=== PATIENT | male | born 1950 | race Caucasian/White ===

== ENCOUNTER 2018-04-02 07:27 | Observation (INO) | payer MEDICARE, BC ==
[~2018-04-02 07:27] MED LIST: CEFAZOLIN 1 GM INJ; KETAMINE (100 MG/ML) 5 ML VIAL
[2018-04-02] MEDS ORDERED: FENTAnyl 50 MCG/ML VIAL (09:06)
[2018-04-02] MEDS ORDERED: MIDAZOLAM 1 MG/ML 2 ML INJ (09:20)
[2018-04-02] MEDS ORDERED: PROPOFOL 20 ML (09:25)
[2018-04-02] MEDS ORDERED: SUCCINYLCHOLINE CHLORIDE 100 MG/5 ML SYG IV (09:25)
[2018-04-02] MEDS ORDERED: ACETAMINOPHEN 1000MG/100ML IV 100 ML (09:25)
[2018-04-02] MEDS ORDERED: LIDOCAINE 2% (SDV) 5 ML INJ (09:25)
[2018-04-02] MEDS ORDERED: ROCURONIUM 50 MG INJ (09:26)
[2018-04-02] MEDS ORDERED: METOCLOPRAMIDE 10 MG INJ (09:26)
[2018-04-02] MEDS: CEFAZOLIN 2 GM/50 ML (PMX) 50 ML IVPB (10:25)
[2018-04-02] MEDS ORDERED: IPRATROPIUM (NEB) 0.5 MG/2.5 ML AMP HHN (10:30)
[2018-04-02] MEDS ORDERED: ONDANSETRON 4 MG INJ IV (10:30)
[2018-04-02] MEDS ORDERED: DIPHENHYDRAMINE 50 MG INJ IV (10:30)
[2018-04-02] MEDS ORDERED: HYDROmorphONE 1 MG/5 ML IV SYRINGE IV ×2 (10:30)
[2018-04-02] MEDS ORDERED: LABETALOL HCL 20MG INJ IV (10:30)
[2018-04-02] MEDS ORDERED: FENTAnyl 50 MCG/ML VIAL IV (10:30)
[2018-04-02] MEDS ORDERED: MEPERIDINE 25 MG INJ IV (10:30)
[2018-04-02] MEDS ORDERED: hydrALAzine 20 MG INJ IV (10:30)
[2018-04-02] MEDS: BUPIVACAINE 0.25% (MPF) 30 ML INJ (10:51)
[2018-04-02] MEDS: POLYMYXIN/BACITRACIN 1L IRRIG (10:51)
[2018-04-02] MEDS ORDERED: LACTATED RINGER'S 1,000 ML IV* ×2 (12:00)
[2018-04-02] MEDS ORDERED: SUGAMMADEX SODIUM 200 MG/2 ML VIAL IV (12:08)
[2018-04-02] MEDS ORDERED: BETHANECHOL 25 MG TAB PO (13:00)
[2018-04-02] MEDS ORDERED: HYDROCODONE/APAP (5/325) TAB PO (13:00)
[2018-04-02] MEDS ORDERED: TRIMETHOBENZAMIDE 100 MG/ML VIAL IM (13:00)
[2018-04-02] MEDS ORDERED: DIAZEPAM 5 MG TAB PO (13:00)
[2018-04-02] MEDS ORDERED: DIAZEPAM 5 MG/ML SYG IM (13:00)
[2018-04-02] MEDS ORDERED: NACL 0.9% 3 ML SYG IV (13:00)
[2018-04-02] MEDS ORDERED: DIPHENHYDRAMINE 50 MG CAP PO (13:00)
[2018-04-02] MEDS ORDERED: AL HYDROX/MG HYDROX/SIMETH 30 ML CUP PO (13:00)
[2018-04-02] MEDS ORDERED: PROCHLORPERAZINE 10 MG TAB PO (13:00)
[2018-04-02] MEDS ORDERED: ACETAMINOPHEN 325 MG TAB PO (13:00)
[2018-04-02] MEDS ORDERED: NALOXONE (0.4 MG/ML) INJ IV (13:00)
[2018-04-02] MEDS ORDERED: HYDROmorphONE 0.2 MG/ML PCA (13:10)
[2018-04-02] MEDS: FENTAnyl 50 MCG/ML VIAL IV (13:11)
[2018-04-02] MEDS: HYDROmorphONE 1 MG/5 ML IV SYRINGE IV (13:18)
[2018-04-02] MEDS: LEVALBUTEROL (NEB) 1.25 MG/0.5 ML AMP HHN (13:18)
[2018-04-02] MEDS: HYDROmorphONE 0.2 MG/ML PCA IV (13:26)
[2018-04-02] MEDS: DEXTROSE 5%-0.45% NACL 1,000 ML IV ×2 (16:14→22:58)
[2018-04-02] MEDS: CEPASTAT LOZENGE MT (16:21)
[2018-04-02] MEDS: CEFAZOLIN 1 GM/50 ML (PMX) 50 ML IVPB (18:10)
[2018-04-02] MEDS: ONDANSETRON 4 MG INJ IV (18:11)
[2018-04-02] MEDS: RANITIDINE 150 MG TAB PO (21:08)
[2018-04-03] MEDS: ZOLPIDEM 5 MG TAB PO (00:10)
[2018-04-03] MEDS: CEFAZOLIN 1 GM/50 ML (PMX) 50 ML IVPB ×2 (00:10→05:25)
[2018-04-03] MEDS: DEXTROSE 5%-0.45% NACL 1,000 ML IV ×2 (05:01→08:58)
[2018-04-03 05:09] LABS: HEMATOCRIT 36.1 % (42.0-52.0); HEMOGLOBIN 12.4 g/dl (14.0-18.0)
[2018-04-03] MEDS: PANTOPRAZOLE (EC) 40 MG TAB PO (05:24)
[2018-04-03 05:44] LABS: ANION GAP 12 (8-16); BLOOD UREA NITROGEN 15 mg/dl (7-20); CALCIUM 9.1 mg/dl (8.4-10.2); CARBON DIOXIDE 26 mmol/L (21-31); CHLORIDE 106 mmol/L (97-110); CREATININE 0.81 mg/dl (0.61-1.24); GLUCOSE 112 mg/dl (70-220); POTASSIUM 3.8 mmol/L (3.5-5.1); SODIUM 140 mmol/L (135-144)
[2018-04-03] MEDS ORDERED: BETHANECHOL 25 MG TAB PO (08:00)
[2018-04-03] MEDS: ASCORBIC ACID 500 MG TAB PO (09:15)
[2018-04-03] MEDS: DOCUSATE SODIUM 100 MG CAP PO (09:15)
[2018-04-03] MEDS: RANITIDINE 150 MG TAB PO (09:15)
[2018-04-03] MEDS: FERROUS SULFATE (EC) 325 MG TAB PO (09:15)
[2018-04-03] MEDS: HYDROCODONE/APAP (5/325) TAB PO (09:16)
== END 2018-04-03 12:03 | disposition home or self-care (01) ==
LOC: REC 07:27 → MS1 14:01
DX: M48.061 Spinal stenosis, lumbar region without neurogenic claudication (principal); Z85.118 Personal history of other malignant neoplasm of bronchus and lung
CPT/HCPCS: 63047; 72020; 80048; 85014; 85018; 86850; 86900; 86901; 86920; 88304; 88311; 94664; 97110; 97116; 97161; 97530; 99217

== ENCOUNTER 2018-06-26 14:57 | Emergency (ER) | payer MEDICARE, BC | END 2018-06-26 18:49 | disposition home or self-care (01) | LOC: FTE 14:57 | DX: M79.605 Pain in left leg (principal); Z85.118 Personal history of other malignant neoplasm of bronchus and lung | CPT/HCPCS: 93971; 99284-25 ==